=== PATIENT | female | born 1965 | race Caucasian/White ===

== ENCOUNTER 2018-01-26 10:55 | Emergency (ER) | payer BC ==
[~2018-01-26] VITALS: Ht 170.2 cm; Wt 88.1 kg
[2018-01-26 13:14] LABS: HEMATOCRIT 44.3 % (36.0-46.0); HEMOGLOBIN 15.4 G/DL (11.9-15.5); MCHC 34.8 G/DL (30.0-36.0); MCV 89.1 FL (83-99); PLATELET COUNT 279 K/uL (156-360); RBC DIS.WIDTH-CV 12.8 % (11.8-14.6); RBC DIS.WIDTH-SD 42.2 % (39-53); RED BLOOD COUNT 4.97 M/uL (3.80-5.20); WHITE BLOOD COUNT 8.3 K/uL (4.1-10.2)
[2018-01-26 13:23] LABS: CHLORIDE 110 mEq/L (99-109); SODIUM 143 mEq/L (136-147)
[2018-01-26 13:25] LABS: GLUCOSE 105 mg/dL (70-99)
[2018-01-26 13:29] LABS: CREATININE 0.7 mg/dL (0.6-1.3); GFR ESTIMATE (CALCULATED) > 59 mL/min/
[2018-01-26 13:30] LABS: UREA NITROGEN (BUN) 7 mg/dL (9-23)
[2018-01-26] MEDS ORDERED: HYDROCHLOROTHIA25 MG PO (13:46)
[2018-01-26 14:05] VITALS: BP 139/93
== END 2018-01-26 14:08 | disposition home or self-care (01) ==
LOC: EME 10:55
PROVIDERS: Physician Assistant
DX: I10 Essential (primary) hypertension (principal)
CPT/HCPCS: 80048; 85027; 99281; 99284